=== PATIENT | female | born 1975 | race Caucasian/White ===

== ENCOUNTER 2020-01-06 14:05 | Emergency (ER) | payer MEDICARE, OTHER ==
[~2020-01-06] VITALS: Ht 154.9 cm; Wt 54.4 kg
[2020-01-06 14:05] VITALS: BP 121/83
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
--- NOTE | 2020-01-06 14:20 | NUR ---
DR [place] AT BEDSIDE
[2020-01-06] MEDS ORDERED: ALPRAZOLAM 0.5 MG TABLET ONE (14:36)
[2020-01-06] MEDS: ALPRAZOLAM 0.5 MG TABLET PO ONE (14:42)
--- NOTE | 2020-01-06 14:47 | NUR ---
Patient discharged to home with in stable condition. Written and verbal after care instructions given. Patient verbalizes understanding of instruction.
== END 2020-01-06 14:48 | disposition home or self-care (01) ==
LOC: ER 14:10
DX: F41.9 Anxiety disorder, unspecified (principal); G89.29 Other chronic pain; M54.9 Dorsalgia, unspecified